=== PATIENT | male | born 1985 | race Caucasian/White ===

== ENCOUNTER 2024-11-21 09:48 | Outpatient (REF) | payer OTHER, SELFPAY ==
--- OUTSIDE RECORDS SUMMARY | 2024-11-21 10:37 | XMS_ITS | Encounter Summary ---
Author Organization [employer] Address [address] [facility] 7t [place] [address] Care Team Providers Care Tongue Stitcher Name Role Phone Doretha Vincent MD Primary Care Provider [phone] Reason for Visit * Reason Onset Date Comments New Patient Appt 04/22/2023 Encounter Details Date Type Department Care Team ([facility] st Contact Info) Description 04/22/2023 Telephone C [facility] [address] [place], [place] [phone] Doretha Vincent MD [address] [place] [address] New Patient Appt Social History Tobacco Use Types Packs/Day Years Used Date Smoking Tobacco: Never Assessed Sex and Gender Information Value Date Recorded Sex Assigned at Male 05/20/2023 10:40 AM EDT Legal Sex Male 10:02 AM EDT Gender Identity Male 05/20/2023 10:40 AM EDT Sexual Orientation Straight 05/20/2023 10 :40 AM EDT documented as of this encounter Miscellaneous Notes * Telephone Encounter - Navdeep Pina - 04/22/2023 10:15 AM EDT PAR Navdeep Houston called pt to Offer ROVING CHANGER appt. Pt demographics and insurance information were verified. Pt reports previous care at [facility] in [place]. Pt reports the following medical conditions: Hand Surgery, scheduled for 04/21/2023 @ 11:30 am and fractured Rib. Pt is currently takingmedication: Tynelol. Pt given ROVING CHANGER appt with PCP Doretha Vincent on 05/20/2023 @ 10:45 am Pt will be sent appt reminder card and medical release form and agrees to complete and to return to medical records prior to ROVING CHANGER appt. documented in this encounter Plan of Treatment Upcoming Encounters Date Type Department Care Team (Late st Contact Info) Description 2024 9:30 AM EST Telemedicine [facility] MED & PEDS [address] [place] [address] Alejandro Peres MD [address] [place] [address] documented as of this encounter Visit Diagnoses Not on filedocumented in this encounter Care Teams Tongue Stitcher Relationship Specialty Start Date End Date Doretha Vincent MD [address] [place] [address] PCP - General Family Medicine 05/20/23 documented as of this encounter
--- OUTSIDE RECORDS SUMMARY | 2024-11-21 10:37 | XMS_ITS | Encounter Summary ---
Author Organization [employer] Address [address] [facility] 7t [place] [address] Care Team Providers Care Cashier Clerk Name Role Phone Doretha Vincent MD Primary Care Provider [phone] Encounter Details Date Type Department Care Team (Latest Contact Info) Description 10/23/2024 Travel Social History Tobacco Use Types Packs/Day Years Used Date Smoking Tobacco: Some Days Cigarettes Smokeless Tobacco: Never Alcohol Answer Date Recorded How often do you have a drink containing alcohol ? 4 10/24/2024 How many drinks containing a lcohol do you have on a typical day when you are drinking? 1 10/24/2024 How often do you have six or more drinks on one occasion? 1 10/24/2024 Depression Answer Date Recorded Patient Health Questionnaire-9 Score 6 07/03/2024 Patient Health Questionnaire-9 Score 6 07/03/2024 Last PHQ-9: Questionnaire Data Not on file 0 07/03/2024 Depression Answer Date Recorded Patient Health Questionnaire-2 Score 2 07/03/2024 Sex and Gender Information Value Date Recorded Sex Assigned at Male 05/20/2023 10:40 AM EDT Legal Sex Male 10:02 AM EDT Gender Identity Male 05/20/2023 10:40 AM EDT Sexual Orientation Straight 05/20/2023 10 :40 AM EDT documented as of this encounter Plan of Treatment Upcoming Encounters Date Type Department Care Team (Late st Contact Info) Description 2024 9:30 AM EST Telemedicine [facility] [address] [place] [address] Alejandro Peres MD [address] [place] [address] documented as of this encounter Visit Diagnoses Not on filedocumented in this encounter Additional Health Concerns Assessment Noted Time PHQ-9 Depression Total Score: 6 07/03/20 24 11:36 AM EDT documented as of this encounter Care Teams Cashier Clerk Relationship Specialty Start Date End Date Doretha Vincent MD [address] [place] [address] PCP - General Family Medicine 05/20/23 documented as of this encounter
--- OUTSIDE RECORDS SUMMARY | 2024-11-21 10:37 | XMS_ITS | Encounter Summary ---
Author Organization [employer] Address [address] [facility] 7t [place] [address] Care Team Providers Care Scaffold Erector Name Role Phone Doretha Vincent MD Primary Care Provider [phone] Reason for Visit * Reason Comments AUD BODY CLEANER Encounter Details Date Type Department Care Team ([facility] st Contact Info) Description 11/13/2024 10:00 AM EST Office Visit [facility] PEDS [address] [place] [address] Alejandro Peres MD [address] [place] [address] Alcohol use disorder, severe, dependence (CMS/HCC) (Primary Dx) Social History Tobacco Use Types Packs/Day Years [...] Answer Date Recorded Patient Health Questionnaire-9 Score 8 11/07/2024 Patient Health Questionnaire-9 Score 8 11/07/2024 Last PHQ-9: Questionnaire Data Not on file 0 11/07/2024 Depression Answer Date Recorded Patient Health Questionnaire-2 Score 3 11/07/2024 Sex and Gender Information Value Date Recorded Sex Assigned at Male 05/20/2023 10:40 AM EDT Legal Sex Male 10:02 AM EDT Gender Identity Male 05/20/2023 10:40 AM EDT Sexual Orientation Straight 05/20/2023 10 :40 AM EDT documented as of this encounter Last Filed Vital Signs Vital Sign Reading Time Taken Comments Blood Pressure 117/69 11/13/2024 10:17 AM EST Pulse 81 11/13/2024 10:17 AM EST Temperature 36.9 ??C (98.4 ??F) 11/13/2024 10:[address] Respiratory Rate 20 11/13/2024 10:17 AM EST Oxygen Saturation - - Inhaled Oxygen Concentration - - Weight - - Height - - Body Mass Index - - documented in this encounter Progress Notes * Alejandro Peres MD - 11/13/2024 10:00 AM EST AUD PHYSICIAN INTAKE 11/13/2024 UTOX: POS THC ONLY DSM-5 AUD Score: 8 (Severe) Patient presents to discuss about MAT for his AUD. Long history of AUD. States he is here per prompting of his brothers who are concerned about his excessive alcohol use. Works at a [employer] ([employer] in [place]). Patient works in the front of the house. Often missing work due to drinking. Did not start drinking until age 23. 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 Undergone group classes and AA. Able to get his driver merchandiser's license reinstated. Typically drinks 6-10 beers with few nips of liquor on weekends. His last drink was 1 week ago. Also uses occasional THC and cocaine, but not chronic use. Denies any opioid use or misuse. Not currently taking any medications. Typical alcohol withdrawal symptoms include shakes, nausea, and vomiting.Never had withdrawal-related seizures or DT. Never been to inpatient detox and residential rehab programs. No pending legal issues. Lives with his brother. PCP - Dr. Vincent Recent consult, then had subsequent individual therapy (10/2024) for depressed mood, loss of interest/pleasure, and anxiety. Has an appointment with psychiatric provider on 12/19/2024 at 10 am. Review of Systems Psychiatric/Behavioral: Negative for behavioral problems and dysphoric mood. The patient is not nervous/anxious. Physical Exam Constitutional: Appearance: Normal appearance. Pulmonary: Effort: Pulmonary effort is normal. Skin: Coloration: Skin is not jaundiced. Neurological: Mental Status: He is alert. Psychiatric: Mood and Affect: Mood normal. Behavior: Behavior normal. 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 Diagnoses and all orders for this visit: Alcohol use disorder, severe, dependence (CMS/HCC) (Primary) - Hepatic Function Panel; Future - Hepatitis A Antibody, Total; Future - Hepatitis B Core Antibody, Total; Future - Hepatitis B Surface Antibody, Qualitative; Future - Hepatitis B surface antigen, EIA; Future - Hepatitis C Antibody with Reflex to HCV, RNA, Quantitative, Real-Time PCR; Future - HIV-1/2 Antigen and Antibodies, Fourth Generation, with Reflexes; Future - Syphilis Screen; Future - CBC auto differential; Future - Vitamin B12/Folate, Serum Panel; Future - naltrexone (Depade) 50 MG tablet; Take 1 tablet (50 mg) by mouth Once per day. Start with 1/2 tab(=25mg) PO DAILY for 4 days, then increase to 1 tab daily. - POCT SHIRA-14 Urine Drug Screen Patient presents for AUD intake Inquiring about MAT for AUD Motivated to stop alcohol use for a longer term Discussed various pharmacologic and behavioral treatment options Discussed our Recovery Coaching services; met with a RC today Also informed about group meetings at [facility] Interested in starting Naltrexone PO treatment Encouraged to check lab work Discussed potential adverse effects of the medication Will follow up in 2 weeks (Tele-Visit) for a re-evaluation Discussed about the risks of alcohol withdrawal in a home setting, including DT, seizure and Gradual taper of alcohol recommended BH and AA support recommended (recently started BH therapy; has an upcoming Psychiatry appointment on 12/19/2024) Indications for ER and inpatient detox reviewed Advised to contact the clinic with any worsening symptoms This information has been disclosed to you from records protected by federal confidentiality rules (42 CFR Part 2). The federal rules prohibit you from making any further disclosure of information inthis record that identifies a patient as having or having had a substance use disorder either directly, by reference to publicly available information, or through verification of such identification by another person unless further disclosure is expressly permitted by the written consent of the individual whose information is being disclosed or as otherwise permitted by (see2.3.1). The federal rules restrict any use of the information to investigate or prosecute with regard to a crime any patient with a substance use disorder, except as provided at 2.12??(5) and 2.65. documented in this encounter Plan of Treatment Upcoming Encounters Date Type Department Care Team (Late st Contact Info) Description 2024 9:[address] [facility] [address] [place] [address] Alejandro Peres MD [address] [place] [address] Scheduled Orders Name Type Priority Associated Diagnoses Orde r Schedule Hepatic Function Panel Lab Routine Alcohol use disorder, severe, dependence (CMS/HCC) Expected: 11/13/2024 (Approximate), Expires: 11/13/2025 Hepatitis A Antibody, Total Lab Routine Alcohol use disorder, severe, dependence (CMS/HCC) Expected: 11/13/2024 (Approximate), Expires: 11/13/2025 Hepatitis B Core Antibody, Total Lab Routine Alcohol use disorder, severe, dependence (CMS/HCC) Expected: 11/13/2024 (Approximate), Expires: 11/13/2025 Hepatitis B Surface Antibody, Qualitative Lab Routine Alcohol use disorder, severe, dependence (CMS/HCC) Expected: 11/13/2024 (Approximate), Expires: 11/13/2025 Hepatitis B surface antigen, EIA Lab Routine Alcohol use disorder, severe, dependence (CMS/HCC) Expected: 11/13/2024 (Approximate), Expires: 11/13/2025 Hepatitis C Antibody with Reflex to HCV, RNA, Quantitative, Real-Time PCR Lab Routine Alcohol use disorder, severe, dependence (CMS/HCC) Expected: 11/13/2024 (Approximate), Expires: 11/13/2025 HIV-1/2 Antigen and Antibodies, Fourth Generation, with Reflexes Lab Routine Alcohol use disorder, severe, dependence (CMS/HCC) Expected: 11/13/2024 (Approximate), Expires: 11/13/2025 Syphilis Screen Lab Routine Alcohol use disorder, severe, dependence (CMS/HCC) Expected: 11/13/2024 (Approximate), Expires: 11/13/2025 CBC auto differential Lab Routine Alcohol use disorder, severe, dependence (CMS/HCC) Expected: 11/13/2024 (Approximate), Expires: 11/13/2025 Vitamin B12/Folate, Serum Panel Lab Routine Alcohol use disorder, severe, dependence (CMS/HCC) Expected: 11/13/2024, Expires: 11/13/2025 documented as of this encounter Procedures Procedure Name Priority Date/Time Associated Diagnosis Comments POCT SHIRA-14 URINE DRUG SCREEN Routine 11/13/2024 11:09 AM EST Alcohol use disorder, severe, dependence (CMS/HCC) documented in this encounter Results * POCT SHIRA-14 Urine Drug Screen (11/13/2024 11:09 AM EST) THC Positive Cocaine Screen, Urine Negative Opiate Screen, Urine Negative Methamphetamine Screen Urine Negative Amphetamine Screen, Urine Negative Benzodiazepines Screen, Urine Negative Barbiturate Screen, Urine Negative Methadone Screen, Urine Negative Buprenophine Screen, Urine Negative TCA, Urine Negative MDMA Urine Negative ng/mL Oxycodone Screen, Urine Negative Phencyclidine (PCP), Urine Negative Propoxyphene, Urine Negative Fentanyl, Urine Negative Urine Urine specimen obtained by clean catch procedure / Unknown 11/13/2024 11:09 AM EST Alejandro Peres MD POINT OF CARE TEST ENTER/EDIT OR DERABLES Final Result documented in this encounter Visit Diagnoses Diagnosis Alcohol use disorder, severe, dependence (CMS/HCC)- Primary documented in this encounter Additional Health Concerns Assessment Noted Time PHQ-9 Depression Total Score: 8 11/07/19 25 8:38 AM EST documented as of this encounter Care Teams Scaffold Erector Relationship Specialty Start Date End Date Doretha Vincent MD [address] [place] [address] PCP - General Family Medicine 05/20/23 documented as of this encounter
--- OUTSIDE RECORDS SUMMARY | 2024-11-21 10:37 | XMS_ITS | Encounter Summary ---
Author Organization [employer] Address [address] [facility] 7t [place] [address] Care Team Providers Care Client Strategist Name Role Phone Doretha Vincent MD Primary Care Provider [phone] Encounter Details Date Type Department Care Team (Latest Contact Info) Description 11/13/2024 Travel Social History Tobacco Use Types Packs/Day [...] Info) Description 2024 9:30 AM EST Telemedicine [facility] MED & PEDS [address] [place] [address] Alejandro Peres MD [address] [place] [address] documented as of this encounter Visit Diagnoses Not on filedocumented in this encounter Additional Health Concerns Assessment Noted Time PHQ-9 Depression Total Score: 8 11/07/19 25 8:38 AM EST documented as of this encounter Care Teams Client Strategist Relationship Specialty Start Date End Date Doretha Vincent MD [address] [place] [address] PCP - General Family Medicine 05/20/23 documented as of this encounter
--- OUTSIDE RECORDS SUMMARY | 2024-11-21 10:37 | XMS_ITS | Encounter Summary ---
Author Organization [employer] Address [address] [facility] 7t [place] [address] Care Team Providers Care Ceramics Teacher Name Role Phone Doretha Vincent MD Primary Care Provider [phone] Reason for Visit * Reason Onset Date Comments Med Refill 11/20/2024 Encounter Details Date Type Department Care Team (Late st Contact Info) Description 11/20/2024 Refill [facility] [address] [place] [address] Doretha Vincent MD [address] [place] [address] Social History Tobacco Use Types Packs/Day Years [...] encounter Miscellaneous Notes * Telephone Encounter - Freddy Guardado - 11/20/2024 3:13 PM EST TC from pt requesting medication refill. Medications needing refill : naproxen (Naprosyn) 500 MG tablet To be sent to: [facility] - [place], [place] - [address] documented in this encounter Plan of Treatment Upcoming Encounters Date Type Department Care Team (Late st Contact Info) Description 2024 9:30 AM EST Telemedicine [facility] MED & PEDS [address] [place] [address] Alejandro Peres MD [address] [place] [address] documented as of this encounter Visit Diagnoses Not on filedocumented in this encounter Additional Health Concerns Assessment Noted Time PHQ-9 Depression Total Score: 8 11/07/19 25 8:38 AM EST documented as of this encounter Care Teams Ceramics Teacher Relationship Specialty Start Date End Date Doretha Vincent MD [address] [place] [address] PCP - General Family Medicine 05/20/23 documented as of this encounter
--- OUTSIDE RECORDS SUMMARY | 2024-11-21 10:37 | XMS_ITS | Encounter Summary ---
Author Organization [employer] Address [address] [facility] 7t [place] [address] Care Team Providers Care Loader Magazine Grinder Name Role Phone Doretha Vincent MD Primary Care Provider Reason for Visit * Reason Onset Date Comments Nurse Triage 04/12/2024 Encounter Details Date Type Department Care Team ([facility] st Contact Info) Description 04/12/2024 Telephone [facility] [address] [place] [address] Doretha Vincent MD [address] [place], [place] [phone] Nurse Triage Social History Tobacco Use Types Packs/Day Years [...] encounter Miscellaneous Notes * Telephone Encounter - Dayan Mathews RN - 04/12/2024 2:06 PM EDT Triage call Pt reports cough has developed over the last several days. Occasional yellow green sputum observed. Nasal drainage usually clear. Neg for fever and breathing without difficulty. Pt reports , I feel really tired and not well. . Pt is not drinking adequate liquids. Advised to increase liquids to 6-8 glasses daily , cut back on coffee. Pt agrees. Pt is questioning possible seasonal allergies with some itchy eyes, post nasal drip. Apt [facility] today at 320pm. Insurance is verified as active prior to booking. Pt agrees with disposition Protocol Used: Cough (Adult) Protocol-Based Disposition: See in Office or Video Visit within 3 Days Video visit offer not recorded Positive Triage Question: * Allergy symptoms are also present (e.g., itchy eyes, clear nasal discharge, postnasal drip) * All higher-acuity triage questions were negative Care Advice Discussed: * Reassurance and Education - Cough * Cough Medicines * Prevent Dehydration * Reasons To Call Back - Difficulty breathing - Cough lasts more than 3 weeks - Fever lasts more than 3 days - You become worse * Telephone Encounter - Siena Joya - 04/12/2024 1:46 PM EDT Symptom: Cough Outcome: Schedule an appointment to be seen within 24 hours Reason: Caller denied all higher acuity questions The caller accepted this outcome Please contact at [phone] documented in this encounter Plan of Treatment Upcoming Encounters Date Type Department Care Team (Late st Contact Info) Description 2024 9:30 AM EST Telemedicine [facility] MED & PEDS [address] [place], [place] [phone] Alejandro Peres MD [address] [place], [place] [phone] documented as of this encounter Visit Diagnoses Not on filedocumented in this encounter Additional Health Concerns Assessment Noted Time PHQ-9 Depression Total Score: 7 05/20/20 23 11:43 AM EDT documented as of this encounter Care Teams Loader Magazine Grinder Relationship Specialty Start Date End Date Doretha Vinecnt MD [address] [place] [id number] PCP - General Family Medicine 05/20/23 documented as of this encounter
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
[2024-11-21 14:14] LABS: MANUAL DIFF FLAG NO
[2024-11-21 14:19] LABS: Basophils Absolute Auto 0.1 X10*3/uL (0.0-0.2); Basophils Percent Auto 0.7 % (0-2); Eosinophils Absolute Auto 0.4 X10*3/uL (0.0-0.4); Eosinophils Percent Auto 4.4 % (0-4); Hematocrit 45.1 % (42.0-52.0); Hemoglobin 15.9 g/dl (14.0-18.0); Imm Gran Abs Auto 0.07 X10*3/uL (0.00-0.03); Imm Gran Pct Auto 0.8 % (0.0-0.4); Lymphocytes Absolute Auto 2.9 X10*3/uL (1.2-4.9); Lymphocytes Percent Auto 32.4 % (20-40); Mean Corpuscular HGB Conc 35.3 g/dl (31.0-36.0); Mean Corpuscular Hemoglobin 31.8 pg (27.0-33.0); Mean Corpuscular Volume 90.2 fL (80.0-98.0); Mean Platelet Volume 10.8 fL (9.4-12.4); Monocytes Absolute Auto 0.7 X10*3/uL (0.1-1.2); Monocytes Percent Auto 8.1 % (2-11); Neutrophils Absolute Auto 4.8 x10*3/uL (2.0-8.3); Neutrophils Percent Auto 53.6 % (45-73); Platelet Count 261 X10*3/uL (160-400); Red Cell Distribution Width 12.3 % (11.0-16.0); White Blood Count 8.9 X10*3/uL (4.8-10.8)
[2024-11-21 14:23] LABS: Amphetamine Screen Urine Not Detected (Not Detect); Barbiturates, Urine Not Detected (Not Detect); Benzodiazepines Screen Urine Not Detected (Not Detect); Buprenorphine Scr Not Detected (Not Detect); Cannabinoid Screen Urine POSITIVE (Not Detect); Cocaine Screen Urine Not Detected (Not Detect); Fentanyl, urine Not Detected (Not Detect); Methadone Screen, Urine Not Detected (Not Detect); Opiate Screen Urine Not Detected (Not Detect); Oxycodone Screen Urine Not Detected (Not Detect); Phencyclidine Screen Urine Not Detected (Not Detect)
[2024-11-21 14:35] LABS: Alanine Aminotransferase 47 U/L (0-40); Albumin Level 4.4 g/dL (3.5-5.0); Alkaline Phosphatase 94 U/L (39-117); Aspartate Amino Transferase 25 U/L (5-37); Bilirubin Direct 0.1 mg/dL (0.0-0.5); Bilirubin Total 0.4 mg/dL (0.0-1.0); Total Protein 7.4 g/dL (6.5-8.0)
[2024-11-21 15:02] LABS: Vitamin B12 375 pg/mL (200-900)
[2024-11-22 08:22] LABS: Hepatitis A Antibody IgG Nonreactive (Nonreactive); ~Hepatitis A Antibody IgG 0.17 S/CO (0.00-0.99)
[2024-11-22 08:30] LABS: HBS Num1 20.41 mIU/mL (0-7.99); HBsAGNum1 0.33 S/CO (0.00-0.99); HIV AB/AG Nonreactive (Nonreactive); HIV Num 1 0.07 S/CO (0.00-0.99); Hepatitis B Core Antibody Nonreactive (Nonreactive); Hepatitis B Surface Antigen Negative (Negative); ~HepC Num1 0.06 S/CO (0.00-0.79); ~Hepatitis B Surface Antibody REACTIVE (Nonreactive); ~Hepatitis C Antibody Nonreactive (Nonreactive)
[2024-11-22 08:38] LABS: Syphilis Screen Nonreactive (Nonreactive)
== END 2024-11-21 09:49 | disposition home or self-care (01) ==
LOC: HO.CHCLDS 09:48
PROVIDERS: Registered Nurse; Visit Provider Family Medicine
DX: F10.20 Alcohol dependence, uncomplicated (principal); F41.1 Generalized anxiety disorder
CPT/HCPCS: 36415; 80076; 80307; 82607; 82746; 85025; 86704; 86706; 86708; 86780; 86803; 87340; 87389